=== PATIENT | female | born 1950 | race Caucasian/White ===

== ENCOUNTER 2024-04-20 09:26 | Outpatient (CLI) | payer OTHER ==
[~2024-04-20 09:26] MED LIST: PROP10TA10 PO
[2024-04-20 10:20] LABS: BASOPHILS # (AUTO) 0.1 X10'3 (0-0.2); EOSINOPHILS # (AUTO) 0.1 X10'3 (0-0.9); LYMPHOCYTES # (AUTO) 2.8 X10'3 (1.1-4.8); MONOCYTES # (AUTO) 0.6 X10'3 (0-0.9)
[2024-04-20 10:23] LABS: BASOPHILS % (AUTO) 1.1 % (0-1); EOSINOPHILS % (AUTO) 1.5 % (0-6); HEMATOCRIT 47.6 % (35.0-45.0); LYMPHOCYTES % (AUTO) 31.9 % (21-51); MEAN CORPUSCULAR HEMOGLOBIN 31.8 PG (27.0-31.0); MEAN CORPUSCULAR HGB CONC 33.7 g/dL (33.0-36.5); MEAN CORPUSCULAR VOLUME 94.2 FL (78-98); MEAN PLATELET VOLUME 10.9 FL (7.4-10.4); MONOCYTES % (AUTO) 6.6 % (2-12); NEUTROPHILS # (AUTO) 5.2 X10'3 (1.8-7.7); NEUTROPHILS % (AUTO) 58.9 % (42-75); PLATELET COUNT 205 X10'3 (140-440); RED BLOOD COUNT 5.05 X10'6 (4.20-5.60); WHITE BLOOD COUNT 8.9 X10'3 (4.5-11.0)
[2024-04-20 10:47] LABS: ALANINE AMINOTRANSFERASE 193 U/L (12-78); ALBUMIN 3.5 G/DL (3.4-5.0); ALBUMIN/GLOBULIN RATIO 0.8 (1.1-1.5); ALKALINE PHOSPHATASE 95 IU/L (46-116); ANION GAP 8 (8-16); ASPARTATE AMINO TRANSFERASE 134 U/L (10-37); BILIRUBIN,TOTAL 0.5 MG/DL (0.1-1.0); BLOOD UREA NITROGEN 13 MG/DL (7-18); BUN/CREATININE RATIO 12.7 (10.0-20.0); CALCIUM 9.4 MG/DL (8.5-10.1); CHLORIDE 107 MMOL/L (99-107); CHOL/HDL RATIO 1.9 (0.00-4.99); CHOLESTEROL 170 MG/DL (0-200); CREATININE 1.02 MG/DL (0.40-0.90); HDL CHOLESTEROL 91 MG/DL (35-60); LDL CHOLESTEROL 66 MG/DL (50-100); POTASSIUM 4.4 MMOL/L (3.5-5.1); SODIUM 139 MMOL/L (135-145); TOTAL CARBON DIOXIDE 24.5 MMOL/L (24-32); TOTAL PROTEIN 7.9 G/DL (6.4-8.2); TRIGLYCERIDES 78 MG/DL (20-135); eGFR 53 ML/MIN
[2024-04-20 10:49] LABS: GLUCOSE 111 MG/DL (70-104)
[2024-04-21 09:25] LABS: ESTRADIOL 78.4 pg/mL (0.0-54.7); PROGESTERONE <0.1 ng/mL (.)
[2024-04-25 17:20] LABS: ESTRONE, SERUM 221 pg/mL (0-125)
== END 2024-04-20 23:59 | disposition home or self-care (01) ==
LOC: RAD 09:26
PROVIDERS: ATTEND Internal Medicine Interventional Cardiology
DX: G47.00 Insomnia, unspecified (principal); E28.39 Other primary ovarian failure; F41.9 Anxiety disorder, unspecified; E78.5 Hyperlipidemia, unspecified
CPT/HCPCS: 80053; 80061; 82670; 82679; 84144; 85025

== ENCOUNTER 2024-09-22 08:45 | Outpatient (CLI) | payer OTHER ==
[2024-09-22 09:23] LABS: EOSINOPHILS # (AUTO) 0.3 X10'3 (0-0.9); EOSINOPHILS % (AUTO) 3.7 % (0-6); MEAN PLATELET VOLUME 9.8 FL (7.4-10.4); NEUTROPHILS # (AUTO) 3.4 X10'3 (1.8-7.7)
[2024-09-22 09:25] LABS: BASOPHILS % (AUTO) 0.7 % (0-1); HEMATOCRIT 46.1 % (35.0-45.0); HEMOGLOBIN 15.5 g/dl (12.0-16.0); MEAN CORPUSCULAR HEMOGLOBIN 30.7 PG (27.0-31.0); MEAN CORPUSCULAR HGB CONC 33.7 g/dL (33.0-36.5); MEAN CORPUSCULAR VOLUME 91.1 FL (78-98); MONOCYTES # (AUTO) 0.8 X10'3 (0-0.9); MONOCYTES % (AUTO) 10.1 % (2-12); NEUTROPHILS % (AUTO) 45.5 % (42-75); PLATELET COUNT 215 X10'3 (140-440); RED BLOOD COUNT 5.06 X10'6 (4.20-5.60); RED CELL DISTRIBUTION WIDTH 13.4 % (11.5-14.5); WHITE BLOOD COUNT 7.5 X10'3 (4.5-11.0)
[2024-09-22 09:49] LABS: ALANINE AMINOTRANSFERASE 504 U/L (12-78); ALBUMIN 3.1 G/DL (3.4-5.0); ALBUMIN/GLOBULIN RATIO 0.7 (1.1-1.5); ALKALINE PHOSPHATASE 87 IU/L (46-116); ANION GAP 6 (8-16); ASPARTATE AMINO TRANSFERASE 344 U/L (10-37); BILIRUBIN,TOTAL 0.5 MG/DL (0.1-1.0); BLOOD UREA NITROGEN 15 MG/DL (7-18); BUN/CREATININE RATIO 13.9 (10.0-20.0); CALCIUM 9.2 MG/DL (8.5-10.1); CHLORIDE 107 MMOL/L (99-107); CHOL/HDL RATIO 1.8 (0.00-4.99); CHOLESTEROL 162 MG/DL (0-200); CREATININE 1.08 MG/DL (0.40-0.90); GLUCOSE 95 MG/DL (70-104); HDL CHOLESTEROL 89 MG/DL (35-60); LDL CHOLESTEROL 53 MG/DL (50-100); POTASSIUM 4.6 MMOL/L (3.5-5.1); SODIUM 141 MMOL/L (135-145); TOTAL CARBON DIOXIDE 27.8 MMOL/L (24-32); TOTAL PROTEIN 7.4 G/DL (6.4-8.2); TRIGLYCERIDES 88 MG/DL (20-135); eGFR 50 ML/MIN
== END 2024-09-22 23:59 | disposition home or self-care (01) ==
LOC: RAD 08:45
PROVIDERS: ATTEND Nurse Practitioner
DX: G47.00 Insomnia, unspecified (principal); I10 Essential (primary) hypertension; E03.9 Hypothyroidism, unspecified; E78.5 Hyperlipidemia, unspecified
CPT/HCPCS: 36415; 80053; 80061; 84443; 85025

== ENCOUNTER 2024-11-13 09:58 | Emergency (ER) | payer OTHER ==
[~2024-11-13] VITALS: Ht 170.2 cm; Wt 63.0 kg
[2024-11-13 10:11] VITALS: TEMP 96.5
--- NOTE | 2024-11-13 11:00 | Physician Documentation ---
History of Present Illness ~ Chief Complaint: Leg Pain Stated Complaint: R LEG PAIN Time Seen by MD: 10:48 Primary Medical Doctor: danielle Mode of Arrival: Ambulatory HPI 74-year-old female who presents to the emergency department complaining of one week of right leg and knee pain and swelling, addition to this patient has been having urticaria and has been trying to use Benadryl without success, she says her skin itches, her leg is swollen, she has been using crutches, she called the orthopedic clinic and they said it would be December before they could see her. Day of Onset: November 07, 2024 Onset: spontaneous, after trauma, after exercise Mechansim: no injury Circumstances: unknown Tetanus witin 5 years: Yes Weight Bearing: able to bear weight Modifying Factors: improves with: cold therapy, pain medication, rest Medication Reconciliation Allergies: Coded Allergies: meperidine (Verified Allergy, Severe, romi, 11/13/24) Scheduled Propranolol Hcl* (Inderal*), 1 TAB PO BID, (Reported) Past Medical History Past Medical History: *CARDIOVASCULAR* Past Surgical History: pacemaker Alcohol Use: None Drug Use: none Lives In: Home Review of Systems All Other Systems at this time: Reviewed and Negative Constitutional: Reports: see HPI Respiratory: Reports: no symptoms reported Musculoskeletal: Reports: see HPI, pain, swelling, joint pain, joint swelling Integumentary: Reports: rash Physical Exam Vital Signs: Temperature: 96.5, Source: Temporal, Heart Rate: 62, Respiratory Rate: 15, BP: 175/97, Pulse Oximetry: 97, Weight: 63.000 Progress Results/Orders Results/Orders Orders - MEGHA RIVERA DO Knee, Complete (11/13/24 10:52) Vl Venous (11/13/24 10:52) Completed Orders - MEGHA RIVERA DO Famotidine Tablet (Pepcid Tablet) (11/13/24 10:55) Knee, Complete (11/13/24 10:52) Vl Venous (11/13/24 10:52) Medications Received in ER Medications (Trade) Dose Ordered Sig/Evelin Route PRN Reason Start Time Stop Time Status Last Admin Dose Admin (Pepcid tablet) 20 mg ONCE ONCE PO 11/13/24 10:55 11/13/24 10:56 DC 11/13/24 11:05 20 MG Vital Signs 11/13/24 11/13/24 11/13/24 11/13/24 10:11 10:48 10:49 14:31 Temp 96.5 Pulse 62 62 64 Resp 18 15 15 15 B/P (MAP) 170/85 175/97 (123) 160/84 Pulse Ox 97 97 99 Re-Evaluation Re-Evaluation : Progress 2:00 p.m. patient re-evaluated discussed the negative imaging and ultrasound, plan is to start prednisone for acute allergic reaction also may help with the inflammation of the knee and have her follow up with her orthopedist as well as general practitioner for a dermatology evaluation. EKG/XRAY/CT/US/VASC/MRI Abdominal X-Ray : Additional Comment [place] [id number] DIAGNOSTIC RADIOLOGY Patient: BECKI BAILEY Medical Record: [id number] [facility] : 1950, Age: 74 Sex: Female Location: ER Patient Status: [facility] ER Service Date/Time: 11/13/24/ 1052 Ordering Physician: MEGHA RIVERA DO Exam: KNEE, COMP 4 VW MIN CLINICAL INDICATION: pain TECHNIQUE: Right DI KNEE, COMP 4 VW MIN Comparison: None FINDINGS/IMPRESSION: : There is no evidence of acute fracture or dislocation. Small joint effusion. Electronically Signed by:FAM SANTOS MD Date & Time: 11/13/24 1126 Dictated by: FAM SANTOS MD Dictation date and time: 11/13/24 1109 Primary Care Provider: NO PRIMARY CARE PROVIDER cc: MEGHA RIVERA DO ~ Ultrasound : Impression [place] [id number] VASCULAR Patient: BECKI BAILEY Medical Record: [id number] [facility] : 1950, Age: 74 Sex: F Location: ER Patient Status: [facility] ER Service Date/Time: 11/13/241051 Ordering Physician: MEGHA RIVERA DO Exam Name: VENOUS Technologist: Oliver Perdomo [facility] 11/13/2024 11:17 AM Clinical History: Right lower extremity pain. Comparison: None Technique: Duplex Doppler evaluation of the deep venous system of the right lower extremity from the common femoral vein to the popliteal vein including color Doppler and spectral/pulsed waveform analysis was performed. Findings: The common femoral vein demonstrates appropriate compressibility and waveform variability . There is compressibility/patency of the great saphenous vein at the proximal thigh . The femoral vein demonstrates appropriate compressibility and waveform variability . The deep femoral vein demonstrates appropriate compressibility and waveform variability . The popliteal vein demonstrates appropriate compressibility and waveform variability . There is color flow in the tibioperoneal trunk and posterior tibial vein. A benign-appearing likely reactive right groin lymph node noted measuring 2.7 x 0.7 cm. Impression: 1. No deep venous thrombosis right lower extremity. If clinical concern/symptoms persist or worsen, short-interval follow-up study is suggested. Dictated by:SARA CHAN MD Dictation date and time:11/13/241253 Electronically Signed by: SARA CHAN MD Date and Time: 11/13/241253 Transcribed: [facility] Transcribed: NO PRIMARY CARE PROVIDER~ cc: MEGHA RIVERA DO; SARA CHAN MD ~ Medical Decision Making General Diff Dx:Considerations: Include: Contusion, Fracture, Sprain Knee Diff Dx:Considerations: Include: Meniscus injury, Septic, Sprain, Sprain- MCL, Sprain-LCL, Sprain-ACL, Sprain-PCL Departure Disposition: HOME / SELF CARE / HOMELESS Impression: Primary Impression: Leg cramps Additional Impressions: Knee pain Rash Condition: Stable Discharge Instructions: RICE Therapy for Routine Care of Injuries, [id number] Referrals: NO PRIMARY CARE PROVIDER (PCP) Education Educated: Patient Educated regarding: diagnosis, treatment, prognosis Signature Scribe Signature: n Attestation: Dictated by myself MEGHA RIVERA DO November 13, 2024 11:00
[2024-11-13] MEDS: famotidine 20mg tablet PO ONE (11:05)
--- NOTE | 2024-11-13 11:28 | RADIOLOGY REPORT ---
CLINICAL INDICATION: pain TECHNIQUE: Right DI KNEE, COMP 4 VW MIN Comparison: None FINDINGS/IMPRESSION: : There is no evidence of acute fracture or dislocation. Small joint effusion.
--- NOTE | 2024-11-13 12:57 | VASCULAR REPORT ---
VASC VL VENOUS VL VENOUS 11/13/2024 11:17 AM Clinical History: Right lower extremity pain. Comparison: None Technique: Duplex Doppler evaluation of the deep venous system of the right lower extremity from the common femo ral vein to the popliteal vein including color Doppler and spectral/pulsed waveform analysis was perf ormed. Findings: The common femoral vein demonstrates appropriate compressibility and waveform variability . There is compressibility/patency of the great saphenous vein at the proximal thigh . The femoral vein demonstrates appropriate compressibility and waveform variability . The deep femoral vein demonstrates appropriate compressibility and waveform variability . The popliteal vein demonstrates appropriate compressibility and waveform variability . There is color flow in the tibioperoneal trunk and posterior tibial vein. A benign-appearing likely reactive right groin lymph node noted measuring 2.7 x 0.7 cm. Impression: 1. No deep venous thrombosis right lower extremity. If clinical concern/symptoms persist or worsen, short-interval follow-up study is suggested.
[2024-11-13 14:31] VITALS: BP 160/84; PULSE 64; RESP 15; O2SAT 99
== END 2024-11-13 14:34 | disposition home or self-care (01) ==
LOC: ER 09:58
DX: M25.461 Effusion, right knee (principal); L50.9 Urticaria, unspecified; Z88.5 Allergy status to narcotic agent; Z95.0 Presence of cardiac pacemaker
CPT/HCPCS: 73564; 93971; 99284

== ENCOUNTER 2025-01-10 07:43 | Outpatient (CLI) | payer OTHER ==
[2025-01-10 08:21] LABS: CREATININE 1.31 MG/DL (0.40-0.90); TOTAL CARBON DIOXIDE 24.7 MMOL/L (24-32); eGFR 40 ML/MIN
== END 2025-01-10 23:59 | disposition home or self-care (01) ==
LOC: LAB 07:43
PROVIDERS: ATTEND Nurse Practitioner
DX: R74.8 Abnormal levels of other serum enzymes (principal)
CPT/HCPCS: 36415; 80053

== ENCOUNTER 2025-02-06 08:37 | Outpatient (CLI) | payer OTHER ==
[2025-02-06 09:42] LABS: CHOL/HDL RATIO 2.1 (0.00-4.99); CRP-CARDIAC RISK 6.770 MG/L; LDL CHOLESTEROL 66 MG/DL (50-100)
[2025-02-07 11:12] LABS: FOLATE SERUM(FOLIC) >20.0 ng/mL (>3.0)
== END 2025-02-06 23:59 | disposition home or self-care (01) ==
LOC: RAD 08:37
PROVIDERS: ATTEND Nurse Practitioner
DX: E34.9 Endocrine disorder, unspecified (principal); R73.9 Hyperglycemia, unspecified; M19.90 Unspecified osteoarthritis, unspecified site; R63.5 Abnormal weight gain; R53.83 Other fatigue; Z13.220 Encounter for screening for lipoid disorders; Z87.828 Personal history of other (healed) physical injury and trauma
CPT/HCPCS: 36415; 80061; 82607; 82746; 83036; 84410; 84439; 84443; 84550; 85651; 86140